=== PATIENT | female | born 1960 | race Caucasian/White ===

== ENCOUNTER 2021-05-25 08:59 | Observation (INO) ==
[2021-05-25] MEDS ORDERED: Magnesium Sulfate 2 gm BAG 2 GM/50 ML BAG IVPB ONE (09:22)
[2021-05-25] MEDS ORDERED: methylPREDNISolone 125 mg 2 ML VIAL IV ONE (09:22)
[2021-05-25] MEDS ORDERED: Albuterol/Ipratropium NEB.SOL (2.5/0.5 MG) 3 ML NEB.SOLN INH ONE ×2 (09:22→10:32)
[2021-05-25 10:07] LABS: ABS Basophils 0.1 10^3/ul (0-0.2); ABS Eosinophils 0.3 10^3/ul (0-0.6); ABS Lymphocytes 0.8 10^3/ul (1.0-4.8); ABS Monocytes 0.5 10^3/ul (0-0.8); ABS Neutrophils 5.9 10^3/ul (1.5-7.7); Eosinophil % 4.3 %; Hematocrit 47 % (35-47); Hemoglobin 16.2 g/dL (12.0-16.0); Lymphocyte % 11.3 %; Mean Corpuscular HGB Conc 34 g/dL (31-36); Mean Corpuscular Hemoglobin 31 pg (27-31); Mean Corpuscular Volume 90 fL (80-97); Mean Platelet Volume 8.3 fL (7.4-10.4); Nucleated Red Blood Cells % 0.1; Platelet Count 218 10^3/uL (150-450); Red Blood Count 5.29 10^6 /uL (3.70-4.87); Red Cell Distribution Width 14 % (10-15); White Blood Count 7.5 10^3/uL (3.5-10.8)
[2021-05-25 10:27] LABS: Troponin I 0.01 ng/mL (<0.03)
[2021-05-25] MEDS ORDERED: Albuterol/Ipratropium NEB.SOL (2.5/0.5 MG) 3 ML NEB.SOLN ONE (10:32)
[2021-05-25 10:34] LABS: Albumin 4.9 g/dL (3.2-5.2); Albumin/Globulin Ratio 1.8 (1-3); C Reactive Protein 4.84 mg/L (<8.01); Globulin 2.8 g/dL (2-4); Potassium 4.2 mmol/L (3.5-5.0); Total Bilirubin 0.8 mg/dL (0.2-1.0); Total Protein 7.7 g/dL (6.4-8.9); eGFR CKD-EPI 98.8 (>60)
[2021-05-25 11:22] LABS: Venous Bicarbonate HCO3 23.6 mmol/L (24-28)
[2021-05-25] MEDS ORDERED: Albuterol/Ipratropium NEB.SOL (2.5/0.5 MG) 3 ML NEB.SOLN INH PRN (14:52)
[2021-05-25] MEDS: Enoxaparin 30 MG/0.3 ML SYR SUBCUT SCH (18:04)
[2021-05-25] MEDS: Mometasone/Formoter 200/5 MDI INH SCH (20:36)
[2021-05-25] MEDS ORDERED: guaiFENesin 100 mg/5 ml LIQ unit dose cup PO ONE (23:54)
[2021-05-26 05:58] LABS: Calcium 9.7 mg/dL (8.6-10.3); Potassium 3.6 mmol/L (3.5-5.0); eGFR CKD-EPI 99.9 (>60)
[2021-05-26] MEDS ORDERED: Albuterol/Ipratropium NEB.SOL (2.5/0.5 MG) 3 ML NEB.SOLN INH SCH ×2 (09:00→13:00)
[2021-05-26] MEDS: Mometasone/Formoter 200/5 MDI INH SCH ×2 (09:04→19:28)
[2021-05-26] MEDS ORDERED: Albuterol/Ipratropium NEB.SOL (2.5/0.5 MG) 3 ML NEB.SOLN INH PRN ×3 (09:14→11:17)
[2021-05-26] MEDS: Albuterol HFA INHALER 8 gm MDI INH PRN (11:18)
[2021-05-26] MEDS: methylPREDNISolone SOD 40 mg/ml 1 ml VIAL IV SCH ×2 (13:23→20:59)
[2021-05-26] MEDS: Enoxaparin 30 MG/0.3 ML SYR SUBCUT SCH (13:24)
[2021-05-26] MEDS ORDERED: methylPREDNISolone SOD 40 mg/ml 1 ml VIAL IV SCH (18:00)
[2021-05-26] MEDS: guaiFENesin/CODIENE 100mg/10mg 5 ML UDC PO PRN (20:59)
[2021-05-27] MEDS: guaiFENesin/CODIENE 100mg/10mg 5 ML UDC PO PRN (03:05)
[2021-05-27] MEDS: Mometasone/Formoter 200/5 MDI INH SCH (08:31)
[2021-05-27] MEDS: Albuterol HFA INHALER 8 gm MDI INH PRN ×2 (08:33→12:06)
[2021-05-27] MEDS: methylPREDNISolone SOD 40 mg/ml 1 ml VIAL IV SCH (08:53)
[2021-05-27 11:58] VITALS: BP 141/76
== END 2021-05-27 15:35 | disposition home or self-care (01) ==
LOC: ED 08:59 → EDHOLD 08:59 → MEDTELE 17:14
PROVIDERS: ADMIT Internal Medicine; ATTEND Internal Medicine